=== PATIENT | male | born 1940 | race Caucasian/White ===

== ENCOUNTER 2016-11-29 09:37 | Outpatient (CLI) | payer OTHER ==
[2016-01-24 15:57] VITALS: BP 125/46
--- NOTE | 2016-11-29 14:41 | Diagnostic Imaging Report ---
KATELYNN PRATT [facility] [id number] [facility].[address] [address] Report Submission Date: Nov 29, 2016 10:17:18 AM CDT Patient Study Name: ANA M TEE Date: Nov 29, 2016 9:48:59 AM CDT Modality Type: CR Gender: M Description: SHOULDER : 38 Institution: [facility] Physician: KATELYNN PRATT Examination: Plain film shoulder History: Discomfort Comparison exams: None provided Findings: 2 views of the shoulder demonstrate normal cortical margins. No evidence for fracture or dislocation. Acromioclavicular degenerative changes. No soft tissue abnormality. Impression: Acromioclavicular degenerative changes. No fracture. Electronically signed on Nov 29, 2016 10:17:18 AM CDT by: Remigio RITTER
== END 2016-11-29 09:45 ==
LOC: RAD 09:37
PROVIDERS: ATTEND Family Medicine
DX: M25.512 Pain in left shoulder (principal)
CPT/HCPCS: 73030